=== PATIENT | female | born 1970 | race Caucasian/White ===

== ENCOUNTER → 2017-04-19 13:32 | Outpatient (CLI) | payer MEDICARE | END | disposition home or self-care (01) | LOC: D.MRI 13:32 | DX: R51 Headache (principal) ==

== ENCOUNTER → 2019-03-12 08:53 | Outpatient (CLI) | payer MEDICARE ==
[2019-03-12 10:09] LABS: T4 THYROXIN - FREE 0.93 ng/dL (0.76-1.46); THYROID STIMULATING HORMONE 1.52 uIU/mL (0.36-3.74)
== END | disposition home or self-care (01) ==
LOC: D.US 08:53
PROVIDERS: Internal Medicine Gastroenterology
DX: R10.9 Unspecified abdominal pain (principal); R11.2 Nausea with vomiting, unspecified; K44.9 Diaphragmatic hernia without obstruction or gangrene; R19.4 Change in bowel habit

== ENCOUNTER 2020-06-08 17:49 | Emergency (ER) | payer MEDICARE ==
[~2020-06-08] VITALS: Ht 167.6 cm; Wt 50.0 kg
[2020-06-08 18:13] VITALS: Ht 167.6 cm; Wt 50.0 kg
[2020-06-08] MEDS ORDERED: PEPCID AC20 MG PO (18:15)
[2020-06-08 18:36] LABS: HEMATOCRIT 37.7 % (36.0-48.0); HEMOGLOBIN 12.5 g/dL (12-16); LYMPHOCYTES 22.4 % (15-50); MCH 29.8 pg (26.0-34.0); MCHC 33.2 g/dL (31.0-37.0); MEAN PLATELET VOLUME 9.6 fL (7.4-10.4); NEUTROPHILS 70.4 % (40-80); PLATELET COUNT 258 10x3/uL (130-400); RBC 4.19 10x6/uL (4.00-5.40); WBC 8.9 10x3/uL (4.8-10.8)
[2020-06-08 18:49] LABS: APTT 32.6 SECONDS (22.8-39.4); CALC OSMOLALITY 279 mosm/kg (275-300); CALCIUM 8.9 mg/dL (8.5-10.1); CARBON DIOXIDE 29.9 mmol/L (21.0-32.0); CHLORIDE - SERUM 105 mmol/L (98-107); CREATININE - SERUM 0.9 mg/dL (0.6-1.3); GLUCOSE 94 mg/dL (74-106); INR 0.98 (0.85-1.17); POTASSIUM - SERUM 3.6 mmol/L (3.5-5.1); SODIUM 140 mmol/L (136-145); UREA NITROGEN 16 mg/dL (7-18); eGFR NON AFRICAN AMERICAN 70 mL/min (90-120)
[2020-06-08 19:06] LABS: ALKALINE PHOSPHATASE 81 U/L (30-120); ALT (SGPT) 26 U/L (10-68); BILIRUBIN - TOTAL 0.36 mg/dL (0.2-1.3); CKMB 0.9 U/L (0.0-3.6); CREATINE KINASE 83 UL (21-215); PROTEIN - SERUM 6.9 g/dL (6.4-8.2)
[2020-06-08 19:11] LABS: TROPONIN-I < 0.017 ng/mL (0.000-0.060)
[2020-06-08 20:14] VITALS: BP 142/82
== END 2020-06-08 20:14 | disposition home or self-care (01) ==
LOC: D.ER 17:49
PROVIDERS: Family Medicine
DX: R07.89 Other chest pain (principal); K21.9 Gastro-esophageal reflux disease without esophagitis